=== PATIENT | female | born 1975 | race Two or more races ===

== ENCOUNTER 2023-11-02 10:28 | Outpatient (CLI) | payer OTHER ==
[~2023-11-02 10:28] MED LIST: CARAFATE1 G; PROTONIX40 MG; ZEGERID 40 MG C1 CAP
== END 2023-11-02 10:31 | disposition home or self-care (01) ==
LOC: SONOGRAMA 10:28
PROVIDERS: ATTEND Pathology Anatomic Pathology & Clinical Pathology
DX: D34 Benign neoplasm of thyroid gland (principal); E07.89 Other specified disorders of thyroid; E04.1 Nontoxic single thyroid nodule